=== PATIENT | male | born 1950 | race Caucasian/White ===

== ENCOUNTER 2017-03-13 21:59 | Inpatient (IN) | payer BC, OTHER ==
[~2017-03-13] VITALS: Ht 185.4 cm; Wt 114.8 kg
--- NOTE | ~2017-03-13 | EKG ---
[address] [address] ELECTROCARDIOGRAM REPORT Name: MAKAYLA HOPE Room #: 202- ADM IN M.R.#: [id number] Admission: 03/13/17 Attend Phys: Richard Argueta MD, Discharge: Date of : 46 Report #: [id number] THIS REPORT FOR: //name// [facility] Test Date: 2017-03-16 Test Time: 09:25:05 Pat Name: MAKAYLA HOPE Department: Room: 202 P Gender: M Knot Tier: Mary CABALLERO : 1950 Requested By: Jose Armando Order Number: [id number] MD: Jose Armando Measurements Intervals [place] Rate: 76 P: -3 NH: 209 QRS: -47 QRSD: 105 T: -27 QT: 504 QTc: 567 Interpretive Statements Sinus rhythm Ventricular bigeminy Left anterior fascicular block Low voltage, extremity and precordial leads Electronically Signed On 03-16-2017 14:12:12 CDT by Jose Armando [email or web address] <ELECTRONICALLY SIGNED> By: Jose Armando MD 03/16/17 1412 Jose Armando MD /EPI
--- NOTE | ~2017-03-13 | EKG ---
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 CABALLERO : 1950 Requested By: Jose Armando Order Number: [id number] MD: Remigio Gibson Measurements Intervals [place] Rate: 71 P: -1 NC: 213 QRS: -52 QRSD: 117 T: 31 QT: 408 QTc: 444 Interpretive Statements Sinus rhythm Multiple ventricular premature complexes Borderline prolonged [place] interval Left anterior fascicular block Low voltage, extremity and precordial leads Compared to ECG 03/16/2017 09:25:05 No significant changes Electronically Signed On 03-18-2017 8:26:24 CDT by Remigio Gibson [email or web address] <ELECTRONICALLY SIGNED> By: Remigio Gibson MD, [facility] 03/18/17 0826 0742 0742 Remigio Gibson MD, [facility] /EPI
--- NOTE | ~2017-03-13 | CATHLAB ---
[facility] [address] [place] [address] INVASIVE PROCEDURE REPORT Name: MAKAYLA HOPE Room #: 202-P [facility] IN .#: [id number] Admission: 03/13/17 Attend Phys: Richard Argueta, Discharge: 03/18/17 Date of : 46 Date of Service: 03/20/17 1758 Report #: [id number] THIS REPORT FOR: //name// APPROVED REPORT Patient Details The patient is a 67 year-old male Procedure Narrative The Right Groin^ was infiltrated with 1% Lidocaine subcutaneous anesthesia. A PINNACLE 6FR Sheath #[id number] sheath was inserted into the RFA^. Coronary angiography was performed using coronary diagnostic catheters. The right coronary system was accessed and visualized with a JR4 catheter. The left coronary system was accessed and visualized with a JL4 catheter. The left ventricle was accessed and visualized with a PIGTAIL catheter. Left ventriculogram was performed in 30 degree projection. An aortogram of the abdominal aorta was performed. Hemostasis was obtained with manual pressure following sheath removal without any complications. The patient tolerated the procedure well and there were no complications associated with the procedure. Intraoperative Conscious Sedation Sedation start time: 8:17 Case end Time: 8:31 Fentanyl mcg Versed 1.5 mg Fluoro Time: 1.11 minutes Dose: 447 mGy Contrast Type and Amount: Visipaque 125 ml Hemodynamics The aortic pressure is 115/48 mmHg with a mean of 47 mmHg. The left ventricular pressure is 100/6 mmHg with a mean of mmHg. The left ventricular end diastolic pressure is 15 mmHg. Conclusion Patient brought to the catheterization lab. The right groin was prepped and draped in a sterile manner. 1% Xylocaine used for local anesthesia. IV Versed for conscious sedation. A 6 Tajik sheath was placed in the right femoral artery without complication. A straight pigtail catheter utilized to perform a single GODINEZ ventriculogram with moderate LV dysfunction EF 35-40% range. All exchanges were made over the wire and FL 4 for the left coronary system FR4 for the right coronary system multiple views and obliques were taken. Patient [facility] [address] [place] [address] INVASIVE PROCEDURE REPORT Name: MAKAYLA HOPE Room #: 202-P [facility] IN M.R.#: [id number] Admission: 03/13/17 Attend Phys: Richard Argueta, Discharge: 03/18/17 Date of : 46 Date of Service: 03/20/17 1758 Report #: [id number] tolerated well vascular closure was utilized the femoral artery without complication. Transferred back to [facility] in the CCU. No indication for coronary intervention. Patient had primary ventricular event. I should note a AP aortogram was also performed. Abdominal aorta was intact mild plaquing noted mild renal artery disease. Impression #1 essentially normal coronary anatomy with mild plaquing in a right dominant system #2 borderline left ventricular dilatation with moderate LV dysfunction EF 35-40% #3 abdominal aorta is intact with mild plaquing mild renal artery disease noted. Recommendation patient has had significant sustained ventricular tachycardia with symptoms. We'll proceed with further EP eval and presumably ICD placement. <ELECTRONICALLY SIGNED> By: Richard Argueta MD, FACC 03/20/171757 57 57 Richard Argueta MD, FACC /INF
[2017-03-13 21:35] VITALS: BP 113/63
[2017-03-13] MEDS ORDERED: ACCUPRIL5 MG PO (23:28)
[2017-03-13] MEDS ORDERED: ZOCOR20 MG PO (23:30)
[2017-03-13] MEDS ORDERED: COREG25 MG PO (23:31)
[2017-03-13] MEDS ORDERED: LASIX 80 MG TAB80 MG PO (23:32)
[2017-03-13] MEDS ORDERED: LANOXIN 0.120.125 M1 PO (23:33)
[2017-03-13] MEDS ORDERED: ZETIA10 MG PO (23:34)
[2017-03-13] MEDS ORDERED: POTASSIUM20 PO (23:34)
[2017-03-13] MEDS ORDERED: COQ1050 MG PO (23:35)
[2017-03-13 23:49] VITALS: BP 114/68
[2017-03-14 00:31] LABS: HEMATOCRIT 42.7 % (42.0-52.0); HEMOGLOBIN 14.2 gm/dL (14.0-18.0); MCH 30.2 pg (26.0-34.0); MCHC 33.3 g/dL (28.0-37.0); MCV 90.8 fL (80.0-100.0); RBC 4.7 mil/uL (4.50-6.00); RDW 13.6 % (10.5-14.5); WBC 6.8 thou/uL (4.0-11.0)
[2017-03-14 00:41] LABS: ALBUMIN 3.7 g/dL (3.4-5.0); CALCIUM 9.3 mg/dL (8.5-10.1); CREATININE 1.2 mg/dL (0.7-1.3); POTASSIUM 4.2 mmol/L (3.5-5.1); TOTAL BILIRUBIN 0.4 mg/dL (<0.1-1.0); TOTAL PROTEIN 6.9 g/dL (6.4-8.2)
[2017-03-14 00:42] LABS: APTT 25.9 Seconds (24.5-32.8); INR 1.1; PROTIME 10.9 Seconds (9.3-11.4)
[2017-03-14 04:17] VITALS: BP 115/61
[2017-03-14 07:20] VITALS: BP 105/62
[2017-03-14 11:40] VITALS: BP 115/65
[2017-03-14 16:10] VITALS: BP 99/63
[2017-03-14 19:25] VITALS: BP 104/53
[2017-03-14 23:37] VITALS: BP 101/56
[2017-03-15 04:33] VITALS: BP 101/60
[2017-03-15 07:15] VITALS: BP 103/55
[2017-03-15 11:30] VITALS: BP 95/53
[2017-03-15 15:50] VITALS: BP 104/57
[2017-03-15 19:36] VITALS: BP 101/59
[2017-03-15 23:49] VITALS: BP 111/63
[2017-03-16] VITALS (15 sets, daily range): BP systolic 94–120; BP diastolic 50–83
[2017-03-17 04:30] VITALS: BP 113/63
[2017-03-17 07:16] LABS: HEMOGLOBIN 13.5 gm/dL (14.0-18.0); MCH 30.7 pg (26.0-34.0); MCHC 33.8 g/dL (28.0-37.0); MCV 90.6 fL (80.0-100.0); RBC 4.42 mil/uL (4.50-6.00); RDW 13.8 % (10.5-14.5); WBC 7.4 thou/uL (4.0-11.0)
[2017-03-17 07:48] LABS: CALCIUM 8.6 mg/dL (8.5-10.1); POTASSIUM 4.3 mmol/L (3.5-5.1)
[2017-03-17 11:00] VITALS: BP 120/66
[2017-03-17 12:00] VITALS: BP 101/59
[2017-03-17 15:25] VITALS: BP 100/60
[2017-03-17 20:18] VITALS: BP 93/55
[2017-03-17 23:34] VITALS: BP 109/66
[2017-03-18 03:33] VITALS: BP 109/64
[2017-03-18] MEDS ORDERED: SOTALOL 120 MG120 MG PO (07:35)
[2017-03-18 08:02] VITALS: BP 114/69
[2017-03-18 09:37] VITALS: BP 114/69
== END 2017-03-18 10:23 | disposition home or self-care (01) | DRG 225 ==
LOC: 2N 21:59
PROVIDERS: Internal Medicine Cardiovascular Disease
DX: I47.2 Ventricular tachycardia (principal); I42.9 Cardiomyopathy, unspecified; E78.00 Pure hypercholesterolemia, unspecified; I49.3 Ventricular premature depolarization; I11.0 Hypertensive heart disease with heart failure; I50.9 Heart failure, unspecified; K21.9 Gastro-esophageal reflux disease without esophagitis; Z79.899 Other long term (current) drug therapy

== ENCOUNTER 2017-04-17 06:39 | Observation (INO) | payer BC, OTHER ==
[~2017-04-17] VITALS: Ht 185.4 cm; Wt 113.7 kg
--- NOTE | ~2017-04-17 | P ---
[facility] [address] [address] PROCEDURE REPORT Name: JAYYMAKAYLA CORTEZ Room #: 206-P [facility] Anneliese Horta#: [id number] Admission: 04/17/17 Attend Phys: Jose Armando MD Discharge: 04/18/17 Date of : 46 Report #: [id number] THIS REPORT FOR: //name// CC: Jose Crowellmark DATE OF SERVICE: 04/17/2017 PREOPERATIVE DIAGNOSIS: RV lead micro-dislodgement. POSTOPERATIVE DIAGNOSIS: RV lead micro-dislodgement. HISTORY: The patient is a 67-year-old status post recent ICD implantation given his history of nonischemic cardiomyopathy and sustained VT. He was recently noted to have evidence of a micro dislodgement with decreased R waves and increasing pacing thresholds. He is here for RV lead revision. ANESTHESIA: The patient underwent MAC anesthesia with no anesthesia related complications. DESCRIPTION OF PROCEDURE: The patient was brought to the EP laboratory in a fasting and unsedated state, prepped and draped in a sterile fashion, received IV vancomycin prior to the initiation of the procedure. Device was checked and the lead was still not functioning well. The lead was and appeared to be in a stable position. Next, I injected lidocaine at the prior incision site and incision was made. The pocket was opened. The sutures around the suture sleeves were cut. A stylet was placed into the RV lead and the screw was retracted back. The lead was pulled back and moved to a new location. I did have problems trying to retract the screw, which was unusual. Eventually after about 20 turns, it finally went back into the lead. After I advanced the lead, I tried to extend the screw into the myocardium and after prolonged period of turning, it was evident that there was something wrong with the mechanism of the lead. I could not deliver the screw. As such, I decided that I needed to place a new lead. I then placed a Cook needle into the insulation of the prior lead and placed a wire into the lead insulation and advanced the stylet into the vessel. Then I pulled out the damaged RV lead. I placed a sheath over the wire using the modified Seldinger technique and then I placed a new lead into the heart. Initially, I delivered the lead into a new location, but again R waves were low here at around 4 or 5, but with good thresholds. As such, I decided to reposition the lead in another location and this location demonstrated better R waves with a good injury current and very good thresholds. I monitored the lead here for several minutes and we checked thresholds and sensing multiple times to ensure that this was in a good position. I left adequate slack in the lead, but of note when I the lead, it did have adequate slack prior to us doing any revisions. As such, this lead was sutured to the prepectoral fascia using Ethibond suture. I connected to the device and I checked the atrial and [address] [address] PROCEDURE REPORT Name: JAYYMAKAYLALes CORTEZ Room #: 206-P JAGRUTI Horta#: [id number] Admission: 04/17/17 Attend Phys: Jose Armando MD Discharge: 04/18/17 Date of : 46 Report #: [id number] ventricular leads several times and they were functioning normally. Next, I placed a [employer] TYRX pouch into the pocket for antibiotic prophylaxis. I irrigated the pocket with vancomycin solution and then closed the pocket in 3 layers and I placed Steri-Strips at the lateral edge of the suture. The patient awoke neurologically and hemodynamically intact with no complications and no significant bleeding. The generator was a [employer] model #641864S, serial #[id number] implanted on 03/17/2017. The atrial lead was a [employer] model #2088TC, 52 cm, serial #[id number] with a P-wave of 2.6 millivolts, pacing impedance of 460 ohms and the pacing threshold 0.75 volts at 0.5 milliseconds. The explanted RV lead was a [employer] model #7122Q, 65 cm, serial #[id number]. The newly implanted RV lead was a [employer] model #7122Q, 65 cm, serial #[id number]. This RV lead demonstrated an R-wave of 10 millivolts, pacing impedance of 590 ohms and the pacing threshold 0.5 volts at 0.5 milliseconds. The device is programmed to the DDDR 60-120 mode. The VT zone was set to 180-220 beats per minute with 3 rounds of bursts followed by 3 rounds of ramp followed by max output shocks. The VF zone was set at greater than 220 beats per minute with ATP while charging followed by max output shocks. CONCLUSIONS: 1. Successful removal and replacement of the RV ICD lead secondary to micro dislodgement. 2. Malfunction of the original RV lead screw mechanism. 3. Satisfactory atrial and ventricular pacing and sensing thresholds. 4. Successful implantation of a Tyrx antibiotic pouch. <ELECTRONICALLY SIGNED> By: Jose Armando MD 04/20/17 1549 1034 1145 MD jessica Ann
--- NOTE | ~2017-04-17 | D ---
[facility] [place] [address] [address] [place] [address] DISCHARGE SUMMARY Name: JAYYMAKAYLA CORTEZ Room #: 206-P [facility] Rula#: [id number] Admission: 04/17/17 Attend Phys: Jose Armando MD Discharge: 04/18/17 Date of : 46 Report #: [id number] THIS REPORT FOR: //name// CC: Jose Alonso [facility] DATE OF SERVICE: 04/18/2017 ADMITTING DIAGNOSIS: Pacemaker malfunction with lead dislodgement. DISCHARGE DIAGNOSIS: Pacemaker malfunction with lead dislodgement. PROCEDURES PERFORMED: Lead repositioning and insertion of a new lead. DISCHARGE MEDICATIONS: Home meds. 1. Follow up with Dr. Armando in [address] Armando's nurse in 7-10 days. DISCHARGE DIET: Heart healthy. BRIEF CLINICAL HISTORY: See history and physical in chart. HOSPITAL COURSE: The patient was admitted to the hospital and was taken to the electrophysiology laboratory. In that procedure then, a new lead was required to be reinserted due to a lead malfunction. Post-active fixation lead, capture and sensing thresholds were reviewed and verified. He had been instructed with the shoulder immobilizer and was monitored closely. He was allowed to ambulate without any difficulty or dysfunction and the pacer function was verified prior to discharge. There were no complications. The patient tolerated the procedure well. <ELECTRONICALLY SIGNED> By: Merlin Rae MD 04/21/17 1315 0012 0045 Merlin Rae MD /nt
[~2017-04-17 06:39] MED LIST: ACCUPRIL5 MG PO; COQ1050 MG PO; COREG25 MG PO; LANOXIN 0.120.125 M1 PO; LASIX 80 MG TAB80 MG PO; POTASSIUM20 PO; SOTALOL 120 MG120 MG PO; ZETIA10 MG PO; ZOCOR20 MG PO
[2017-04-17 07:17] VITALS: BP 115/68
[2017-04-17 07:25] LABS: ABSOLUTE NEUTROPHILS 8.7 thou/uL (1.4-8.2); BASOPHILS 0.6 % (0.0-2.0); EOSINOPHILS 3.3 % (0.0-3.0); HEMATOCRIT 45.5 % (42.0-52.0); LYMPHOCYTES 12.1 % (24.0-44.0); MANUAL DIFF NO; MCH 30.1 pg (26.0-34.0); MONOCYTES 6.3 % (1.0-8.0); PLATELET COUNT 215 thou/uL (150-400); POLYS 77.7 % (36.0-66.0); RDW 13.8 % (10.5-14.5); WBC 11.2 thou/uL (4.0-11.0)
[2017-04-17 07:33] LABS: CALCIUM 8.9 mg/dL (8.5-10.1); CREATININE 1.2 mg/dL (0.7-1.3); POTASSIUM 3.7 mmol/L (3.5-5.1)
[2017-04-17 07:39] LABS: TOTAL BILIRUBIN 0.6 mg/dL (<0.1-1.0); TOTAL PROTEIN 7.5 g/dL (6.4-8.2)
[2017-04-17 07:44] LABS: APTT 24.6 Seconds (24.5-32.8)
[2017-04-17 16:25] VITALS: BP 99/48
[2017-04-17 20:00] VITALS: BP 104/61
[2017-04-17 23:10] VITALS: BP 95/49
[2017-04-18 03:30] VITALS: BP 110/67
[2017-04-18 07:15] VITALS: BP 99/59
[2017-04-18 14:51] VITALS: BP 99/59
== END 2017-04-18 15:11 | disposition home or self-care (01) ==
LOC: CATH 06:39 → 2N 11:57
PROVIDERS: Internal Medicine Cardiovascular Disease
DX: I42.8 Other cardiomyopathies (principal); I25.10 Atherosclerotic heart disease of native coronary artery without angina pectoris; I10 Essential (primary) hypertension; N43.3 Hydrocele, unspecified; E78.5 Hyperlipidemia, unspecified; R53.83 Other fatigue; T82.9XXD Unspecified complication of cardiac and vascular prosthetic device, implant and graft, subsequent encounter; Z72.89 Other problems related to lifestyle

== ENCOUNTER 2018-07-26 06:40 | Inpatient (IN) | payer BC, OTHER ==
[2018-07-26] VITALS (18 sets, daily range): BP systolic 91–111; BP diastolic 50–66
--- NOTE | ~2018-07-26 | 2DMMODE ---
[facility] [employer] [place] [address] 2 D/M-MODE ECHOCARDIOGRAM Name: MAKAYLA HOPE Room #: 237-P ADM IN M.R.#: [id number] Admission: 07/26/18 Attend Phys: Jose Armando Discharge: Date of : 46 Date of Service: 07/27/18 1511 Report #: [id number] THIS REPORT FOR: //name// APPROVED REPORT Study performed: 07/27/2018 14:08:54 EXAM: Comprehensive 2D, Doppler, and color-flow Echocardiogram Patient Location: ICU Room #: [facility] Status: routine BSA: 2.34 HR: 75 bpm BP: 113/70 mmHg Other Information Study Quality: Good Indications ICD: Cardiomyopathy S^P Ablation 2D Dimensions RVDd: 41.32 mm IVSd: 11.34 (7-11mm) LVOT Diam: 25.09 (18-24mm) LVDd: 60.74 mm PWd: 10.54 (7-11mm) Ascending Ao: 28.03 (22-36mm) LVDs: 54.46 (25-40mm) Aortic Root: 27.54 mm IVC: 25.00 mm Volumes Left Atrial Volume (Systole) Single Plane 4CH: 92.64 mL Single Plane 2CH: 77.26 mL LA ESV Index: 54.00 mL/m2 Aortic Valve AoV Peak Irineo.: 1.02 m/s AO Peak Gr.: 4.18 mmHg LVOT Max P.38 mmHg LVOT Max V: 0.77 m/s CECIL Vmax: 3.73 cm2 Mitral Valve E/A Ratio: 0.5 MV Decel. Time: 226.[address] [facility] [place] [address] [place] [address] 2 D/M-MODE ECHOCARDIOGRAM Name: MAKAYLA HOPE Room #: [address] [place] [address] [facility].#: [id number] Admission: 07/26/18 Attend Phys: Jose Amrando Discharge: Date of : 46 Date of Service: 07/27/18 1511 Report #: [id number] E Max Irineo.: 0.47 m/s MV A Irineo.: 0.86 m/s MV PHT: 65.66 ms IVRT: 156.86 ms Pulmonary Valve PV Peak Irineo.: 0.89 m/s PV Peak Gr.: 3.18 mmHg Left Ventricle Left ventricle is dilated. There is global hypokinesis of the left ventricle. There is normal left ventricular wall thickness. Left ventricular ejection fraction is moderate to severely decreased. LVEF is 30-35%. The diastolic function is abnormal. Right Ventricle Right ventricle is at the upper limits of normal. The right ventricular systolic function is normal. Device lead is present in the right ventricle. Atria Left atrium is dilated. Right atrium is at the upper limits of normal. Device lead is present in the right atrium. Aortic Valve The aortic valve is normal in structure. No aortic regurgitation is present. There is no aortic valvular stenosis. Mitral Valve The mitral valve is normal in structure. Mild mitral regurgitation. No evidence of mitral valve stenosis. Tricuspid Valve The tricuspid valve is normal in structure. There is trace tricuspid regurgitation. There is no pulmonary hypertension. Pulmonic Valve The pulmonary valve is normal in structure. Trace pulmonic regurgitation. Great Vessels The aortic root is normal in size. IVC is dilated and collapses <50% with inspiration. Pericardium There is no pericardial effusion. [facility] [address] [place] [address] 2 D/M-MODE ECHOCARDIOGRAM Name: JAYYMAKAYLALes CORTEZ Room #: 237-P [facility] IN M.R.#: [id number] Admission: 07/26/18 Attend Phys: Jose Armando Discharge: Date of : 46 Date of Service: 07/27/18 1511 Report #: [id number] <Conclusion> Left ventricle is dilated. There is global hypokinesis of the left ventricle. Left ventricular ejection fraction is moderate to severely decreased. LVEF is 30-35%. The diastolic function is abnormal. Right ventricle is at the upper limits of normal. Left atrium is dilated. Right atrium is at the upper limits of normal. Device lead is present in the right atrium. The aortic valve is normal in structure. Mild mitral regurgitation. Device lead is present in the right ventricle. There is trace tricuspid regurgitation. There is no pulmonary hypertension. There is trace tricuspid regurgitation. There is no pulmonary hypertension. The aortic root is normal in size. The aortic root is normal in size. There is no pericardial effusion. <ELECTRONICALLY SIGNED> By: Richard Argueta MD, FACC 07/27/181510 10 10 Richard Argueta MD, FACC /INF
--- NOTE | ~2018-07-26 | EKG ---
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1950 Requested By: Karey Martinez Order Number: [id number] MD: Remigio Gibson Measurements Intervals Murray Rate: 70 P: 21 [place]: 249 QRS: -47 QRSD: 119 T: QT: 503 QTc: 543 Interpretive Statements Sinus rhythm Prolonged [place] interval Nonspecific intraventricular conduction delay Nonspecific T wave abnormality Low voltage, precordial leads Compared to ECG 07/28/2018 07:22:04 No significant change was found Electronically Signed On 07-29-2018 10:51:28 DRIER FEEDER by Remigio Gibson [email or web address] <ELECTRONICALLY SIGNED> By: Remigio Gibson MD, [facility] 07/29/18 1051 0651 0651 Remigio Gibson MD, [facility] /EPI
--- NOTE | ~2018-07-26 | EKG ---
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 : 1950 Requested By: Jose Armando Order Number: [id number] MD: Remigio Gibson Measurements Intervals [place] Rate: 79 P: 52 NH: 255 QRS: -47 QRSD: 122 T: QT: 465 QTc: 534 Interpretive Statements Sinus rhythm Prolonged [place] interval Nonspecific intraventricular conduction delay Compared to ECG 03/18/2017 07:42:35 Ventricular premature complex(es) no longer present Electronically Signed On 07-28-2018 8:49:06 FILTER TANK TENDER by Remigio Gibson [email or web address] <ELECTRONICALLY SIGNED> By: Remigoi Gibson MD, [facility] 07/28/18 0849 1 1 Remigio Gibson MD, [facility] /EPI
[2018-07-26 07:16] LABS: ABSOLUTE NEUTROPHILS 8.3 thou/uL (1.4-8.2); BASOPHILS 0.7 % (0.0-2.0); EOSINOPHILS 2.6 % (0.0-3.0); HEMATOCRIT 47.3 % (42.0-52.0); HEMOGLOBIN 15.7 gm/dL (14.0-18.0); LYMPHOCYTES 12.8 % (24.0-44.0); MCH 31.4 pg (26.0-34.0); MCHC 33.3 g/dL (28.0-37.0); MCV 94.3 fL (80.0-100.0); MONOCYTES 6.2 % (1.0-8.0); PLATELET COUNT 267 thou/uL (150-400); POLYS 77.7 % (36.0-66.0); RBC 5.01 mil/uL (4.50-6.00); RDW 13.7 % (10.5-14.5); WBC 10.7 thou/uL (4.0-11.0)
[2018-07-26] MEDS ORDERED: ASPIRIN325 PO ×2 (07:16)
[2018-07-26] MEDS ORDERED: PACERONE 200 M200 M1 PO ×2 (07:16)
[2018-07-26] MEDS ORDERED: CO Q-10100 MG PO ×2 (07:17)
[2018-07-26 07:30] LABS: APTT 30.9 Seconds (24.5-32.8); PROTIME 10.8 Seconds (9.3-11.4)
[2018-07-26 07:40] LABS: CALCIUM 9.4 mg/dL (8.5-10.1); CREATININE 1.5 mg/dL (0.7-1.3); POTASSIUM 3.2 mmol/L (3.5-5.1)
[2018-07-26 07:46] LABS: ALBUMIN 4.1 g/dL (3.4-5.0); TOTAL BILIRUBIN 0.5 mg/dL (<0.1-1.0); TOTAL PROTEIN 8.1 g/dL (6.4-8.2)
[2018-07-26 17:16] LABS: HEMATOCRIT 40.1 % (42.0-52.0)
[2018-07-26 17:17] LABS: HEMOGLOBIN 13.4 gm/dL (14.0-18.0)
[2018-07-27] VITALS (29 sets, daily range): BP systolic 90–117; BP diastolic 42–70
[2018-07-27 03:59] LABS: ABSOLUTE NEUTROPHILS 4.5 thou/uL (1.4-8.2); EOSINOPHILS 1.8 % (0.0-3.0); HEMATOCRIT 35.5 % (42.0-52.0); HEMOGLOBIN 12.1 gm/dL (14.0-18.0); LYMPHOCYTES 15.6 % (24.0-44.0); MCH 31.9 pg (26.0-34.0); MCV 93.8 fL (80.0-100.0); MONOCYTES 11.3 % (1.0-8.0); POLYS 70.3 % (36.0-66.0); RBC 3.78 mil/uL (4.50-6.00); RDW 13.8 % (10.5-14.5); WBC 6.4 thou/uL (4.0-11.0)
[2018-07-27 04:01] LABS: PLATELET COUNT 181 thou/uL (150-400)
[2018-07-27 04:10] LABS: CALCIUM 8.6 mg/dL (8.5-10.1); CREATININE 1.1 mg/dL (0.7-1.3)
[2018-07-28 04:11] LABS: ABSOLUTE NEUTROPHILS 4.4 thou/uL (1.4-8.2); BASOPHILS 0.7 % (0.0-2.0); EOSINOPHILS 2.4 % (0.0-3.0); HEMATOCRIT 33.2 % (42.0-52.0); HEMOGLOBIN 11.3 gm/dL (14.0-18.0); LYMPHOCYTES 14.7 % (24.0-44.0); MCH 31.7 pg (26.0-34.0); MCHC 33.9 g/dL (28.0-37.0); MCV 93.5 fL (80.0-100.0); MONOCYTES 11.1 % (1.0-8.0); PLATELET COUNT 172 thou/uL (150-400); POLYS 71.1 % (36.0-66.0); RBC 3.55 mil/uL (4.50-6.00); RDW 13.5 % (10.5-14.5); WBC 6.1 thou/uL (4.0-11.0)
[2018-07-28 04:15] LABS: CALCIUM 8.5 mg/dL (8.5-10.1); CREATININE 1.2 mg/dL (0.7-1.3); POTASSIUM 3.9 mmol/L (3.5-5.1)
[2018-07-28 05:01] VITALS: BP 105/61
[2018-07-28 07:54] VITALS: BP 105/55
[2018-07-28] MEDS ORDERED: COREG12.5 MG PO ×2 (10:46)
[2018-07-28] MEDS ORDERED: PACERONE 200 M200 M1 PO ×2 (10:48)
[2018-07-28] MEDS ORDERED: MEXILETINE 150150 MG PO ×2 (10:48)
[2018-07-28 11:22] VITALS: BP 104/69
[2018-07-28 15:28] VITALS: BP 97/58
[2018-07-28 19:45] VITALS: BP 95/57
[2018-07-29 03:06] LABS: HEMATOCRIT 32.3 % (42.0-52.0); HEMOGLOBIN 10.7 gm/dL (14.0-18.0); MCH 31.2 pg (26.0-34.0); MCHC 33.2 g/dL (28.0-37.0); MCV 94.1 fL (80.0-100.0); PLATELET COUNT 165 thou/uL (150-400); RBC 3.44 mil/uL (4.50-6.00); RDW 13.6 % (10.5-14.5)
[2018-07-29 03:15] LABS: CALCIUM 8.5 mg/dL (8.5-10.1); POTASSIUM 3.7 mmol/L (3.5-5.1)
[2018-07-29 04:20] VITALS: BP 109/63
[2018-07-29 04:26] LABS: ABSOLUTE NEUTROPHILS 4.3 thou/uL (1.4-8.2)
[2018-07-29 04:27] LABS: PLATELET ESTIMATE NORMAL; POLYCHROMASIA OCCASIONAL
[2018-07-29 08:19] VITALS: BP 101/59
[2018-07-29 09:21] VITALS: BP 101/59
== END 2018-07-29 11:05 | disposition home or self-care (01) | DRG 274 ==
LOC: CATH 06:40 → ICU 16:31 → CATH 16:32 → ICU 16:32 → 2N 07-27 16:42
PROVIDERS: Internal Medicine Cardiovascular Disease; Nurse Practitioner
PROC: 02583ZZ Destruction of Conduction Mechanism, Percutaneous Approach (ICD-10-PCS; principal; 2018-07-26)
DX: I47.2 Ventricular tachycardia (principal); I42.9 Cardiomyopathy, unspecified; Z79.899 Other long term (current) drug therapy
CPT/HCPCS: 10078; 10081; 62110; 62900; 65020; 65040; 70005

== ENCOUNTER 2018-07-30 19:12 | Emergency (ER) | payer BC, OTHER ==
[~2018-07-30] VITALS: Ht 185.4 cm; Wt 111.1 kg
[~2018-07-30 19:12] MED LIST changes: +ASPIRIN325 PO; +CO Q-10100 MG PO; +COREG12.5 MG PO; +MEXILETINE 150150 MG PO; +PACERONE 200 M200 M1 PO
[2018-07-30 20:20] LABS: HEMATOCRIT 35.3 % (42.0-52.0); MCH 31.6 pg (26.0-34.0); MCHC 33.9 g/dL (28.0-37.0); MCV 93.2 fL (80.0-100.0); RBC 3.78 mil/uL (4.50-6.00); RDW 13.6 % (10.5-14.5); WBC 7.1 thou/uL (4.0-11.0)
[2018-07-30 20:32] LABS: CALCIUM 8.6 mg/dL (8.5-10.1); CREATININE 1.2 mg/dL (0.7-1.3); POTASSIUM 4.3 mmol/L (3.5-5.1)
[2018-07-30 22:49] VITALS: BP 108/60
== END 2018-07-30 22:52 | disposition home or self-care (01) ==
LOC: ER 19:12
PROVIDERS: Emergency Medicine
DX: S30.1XXA Contusion of abdominal wall, initial encounter (principal); I10 Essential (primary) hypertension; E78.5 Hyperlipidemia, unspecified; I42.9 Cardiomyopathy, unspecified; I25.10 Atherosclerotic heart disease of native coronary artery without angina pectoris; Z95.5 Presence of coronary angioplasty implant and graft; X58.XXXA Exposure to other specified factors, initial encounter; Y92.89 Other specified places as the place of occurrence of the external cause; Y93.89 Activity, other specified; Y99.8 Other external cause status

== ENCOUNTER → 2020-02-15 | Outpatient (CLI) | payer OTHER, MEDICARE | LOC: SJCVC 14:05 | PROVIDERS: ATTEND Internal Medicine Cardiovascular Disease | DX: Z45.02 Encounter for adjustment and management of automatic implantable cardiac defibrillator (principal); I47.2 Ventricular tachycardia; I42.8 Other cardiomyopathies; I10 Essential (primary) hypertension; E78.00 Pure hypercholesterolemia, unspecified; I25.10 Atherosclerotic heart disease of native coronary artery without angina pectoris; E78.5 Hyperlipidemia, unspecified; Z79.899 Other long term (current) drug therapy; Z79.82 Long term (current) use of aspirin; Z95.810 Presence of automatic (implantable) cardiac defibrillator ==

== ENCOUNTER → 2020-03-16 | Outpatient (CLI) | payer OTHER, MEDICARE ==
[~2020-03-16] VITALS: Ht 182.9 cm; Wt 92.5 kg
[~2020-03-16] MED LIST changes: +AMIODARONE HCL400 MG PO; +CARVEDILOL12.5 MG PO; +NEXLETOL180 MG PO; +VITAMIN B-121000 MC2 PO
--- NOTE | 2020-03-16 13:37 | P ---
[facility] [place] [address] PROCEDURE REPORT Name: MAKAYLA HOPE Room #: [facility]#: [id number] Admission: 03/16/20 Attend Phys: Ke Newman MD Discharge: Date of : 46 Report #: [id number] THIS REPORT FOR: cc: Gavin Lester MD, Rene P. MD Thesing, John A. MD ~ CC: Ke Lester DATE OF SERVICE: 03/16/2020 OUTPATIENT COLONOSCOPY REPORT BRIEF HISTORY: The patient is a 70-year-old male with a history of a positive Cologuard test for screening for colorectal cancer. PREOPERATIVE DIAGNOSIS: Positive Cologuard test. POSTOPERATIVE DIAGNOSES: 1. Flat polyp, mid ascending colon. 2. Moderately severe diverticulosis coli. MEDICATIONS: Deep sedation with propofol per anesthesia. SPECIMEN: Mid ascending colon polyp. ESTIMATED BLOOD LOSS: 3 mL. PROCEDURE: Colonoscopy to cecum and terminal ileum with snare polypectomy. FINDINGS: Prior to propofol sedation, the procedure of colonoscopy was discussed with the patient as well as potential risks and its complications. He indicates he understands and desires to proceed. DESCRIPTION OF PROCEDURE: With the patient in left lateral decubitus position, digital examination was completed, which revealed no abnormalities. Subsequently, the Olympus video colonoscope was introduced into the rectum, advanced under direct vision to the cecum. This was done with minimal difficulty. Cecum was identified by the ileocecal valve and the appendiceal orifice. I was able to visualize the distal segment of terminal ileum, which was inspected and noted to be unremarkable. At that point, the scope was slowly withdrawn and careful circumferential views were obtained. At that point the scope was slowly withdrawn and careful circumferential views were obtained. Upon slow withdrawal of the scope, the prep was good. The mucosa was within normal limits, normal vascular pattern, normal light reflex. No abnormalities [facility] [address] [place] [address] PROCEDURE REPORT Name: MAKAYLA HOPE Room #: [facility]#: [id number] Admission: 03/16/20 Attend Phys: Ke Newman MD Discharge: Date of : 46 Report #: [id number] were noted until the mid ascending colon was reached, at which point a flat 6-7 mm polyp was seen. It was mucus covered and had the appearance of a serrated adenoma. It was removed by cold snare polypectomy. Scope was further withdrawn. No additional neoplastic lesions were seen. As we withdrew the scope through the sigmoid colon, there was noted to be moderately severe diverticular disease without endoscopic evidence of diverticulitis. Scope was withdrawn in the rectum, no abnormalities were seen. Upon retroflexion, no abnormalities were seen. Scope was withdrawn. The patient tolerated the procedure well. CONDITION OF THE PATIENT UPON DISCHARGE: Following procedure, the patient was drowsy, aroused and conversant and will be discharged home when fully ambulatory. INSTRUCTIONS TO THE PATIENT AND FAMILY AT THE TIME OF DISCHARGE: One polyp identified and removed as described above. We will follow up on the pathology. If this is a traditional adenoma or serrated adenoma, he should return in 5 years; if it is not, then 10 years would be indicated. He will otherwise follow up with care of Dr. Gavin Lester. <ELECTRONICALLY SIGNED> By: Ke Newman MD 03/16/20 1337 0932 0947 Ke Newman MD /nt
--- NOTE | 2020-03-19 17:04 | PATH ---
[facility] [address] [address] PATHOLOGY RPT PROCEDURE Name: MAKAYLA HOPE Room #: [facility] Jf.#: [id number] Admission: 03/16/20 Date of : 46 Discharge: Report #: [id number] Path Case #: [id number] [facility] Accession Number: [id number] . 01 Material submitted: . colon - POLYP AT MID ASCENDING COLON. Modifiers: mid, ascending . 01 Clinical history: . Pre-op diagnosis: Screening, history of polyp Post-op diagnosis: Polyp Blood in stool; Covid . 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 - Negative for high-grade dysplasia. (IUV:christoph; 03/19/2020) MBR 03/19/2020 1326 Local . 02 Electronically signed: . Grazyna Mccann MD, Pathologist NPI- [id number] . 01 Gross description: . The specimen is received in formalin, labeled "Makayla Hope, polyp at mid ascending colon". Received is a segment of pale lisa soft tissue measuring 1.7 cm in maximum dimensions. The specimen is submitted entirely in cassette A1. (CAA; 03/16/2020) QA/QA 03/16/2020 1815 Local . 02 Pathologist provided ICD-10: D12.2 . 02 CPT . 418951 Specimen Comment: A courtesy copy of this report has been sent to [phone] Specimen Comment: [phone] Specimen Comment: Report sent to / DR ZUNIGA Performed at: [address] [id number] MD Elliott Hernandez MD Phone: [phone] Performed at: [address] [id number] [address] [address] PATHOLOGY RPT PROCEDURE Name: MAKAYLA HOPE Room #: REG CL[facility] Horta#: [id number] Admission: 03/16/20 Date of : 46 Discharge: Report #: [id number] Path Case #: [id number] MD Grazyna Mccann MD Phone: [phone]
== END | disposition home or self-care (01) ==
LOC: GI 07:31
PROVIDERS: ATTEND Specialist
DX: R19.5 Other fecal abnormalities (principal); D12.2 Benign neoplasm of ascending colon; K57.30 Diverticulosis of large intestine without perforation or abscess without bleeding; I11.0 Hypertensive heart disease with heart failure; I50.9 Heart failure, unspecified; E78.00 Pure hypercholesterolemia, unspecified; Z98.890 Other specified postprocedural states; Z79.899 Other long term (current) drug therapy; Z11.59 Encounter for screening for other viral diseases; Z88.8 Allergy status to other drugs, medicaments and biological substances; Z95.0 Presence of cardiac pacemaker
CPT/HCPCS: 62110; 62900

== ENCOUNTER → 2020-04-11 | Outpatient (CLI) | payer OTHER, MEDICARE | LOC: SJCVC 09:54 | PROVIDERS: ATTEND Internal Medicine Cardiovascular Disease | DX: E78.00 Pure hypercholesterolemia, unspecified (principal) ==

== ENCOUNTER → 2020-08-27 | Outpatient (CLI) | payer OTHER, MEDICARE | LOC: SJCVC 11:04 | PROVIDERS: ATTEND Internal Medicine Cardiovascular Disease | DX: I42.8 Other cardiomyopathies (principal); I47.1 Supraventricular tachycardia; I10 Essential (primary) hypertension; Z95.0 Presence of cardiac pacemaker; E78.00 Pure hypercholesterolemia, unspecified; Z79.82 Long term (current) use of aspirin; Z79.899 Other long term (current) drug therapy ==

== ENCOUNTER → 2020-12-12 | Outpatient (CLI) | payer OTHER, MEDICARE | LOC: SJCVC 14:00 | PROVIDERS: ATTEND Internal Medicine Cardiovascular Disease | DX: R94.31 Abnormal electrocardiogram [ECG] [EKG] (principal); I45.4 Nonspecific intraventricular block; I44.0 Atrioventricular block, first degree; I47.2 Ventricular tachycardia; I49.3 Ventricular premature depolarization; I42.8 Other cardiomyopathies; Z79.899 Other long term (current) drug therapy; Z79.82 Long term (current) use of aspirin; E55.9 Vitamin D deficiency, unspecified; E53.9 Vitamin B deficiency, unspecified; Z95.2 Presence of prosthetic heart valve; E78.5 Hyperlipidemia, unspecified; I10 Essential (primary) hypertension ==

== ENCOUNTER → 2021-06-27 | Outpatient (CLI) | payer OTHER, MEDICARE | LOC: SJCVCIMAG 13:16 | PROVIDERS: ATTEND Internal Medicine Cardiovascular Disease | DX: I34.0 Nonrheumatic mitral (valve) insufficiency (principal); I42.8 Other cardiomyopathies; E78.00 Pure hypercholesterolemia, unspecified; I47.2 Ventricular tachycardia; I11.0 Hypertensive heart disease with heart failure; I50.22 Chronic systolic (congestive) heart failure; I25.10 Atherosclerotic heart disease of native coronary artery without angina pectoris; E78.5 Hyperlipidemia, unspecified; Z88.8 Allergy status to other drugs, medicaments and biological substances; Z95.810 Presence of automatic (implantable) cardiac defibrillator; Z79.82 Long term (current) use of aspirin; Z79.899 Other long term (current) drug therapy ==